=== PATIENT | male | born 1960 | race Caucasian/White ===

== ENCOUNTER → 2017-02-01 | Outpatient (CLI) | payer OTHER ==
[~2017-02-01] MED LIST: 'TENORMIN50 MG PO; ABILIFY10 MG PO; BRIN10TA PO; BRIN20TA PO; CIPRO500 MG PO; DOXYCYCLINE100 M3 PO; K-TAB20 MEQ PO; LASIX20 MG PO; LIPOIC ACID PO; Lovenox40 MG/0.4 SC; QUINAPRIL40 MG PO; VICODIN 5/500 505 MG PO
--- NOTE | ~2017-02-01 | PR ---
[place], [place] PROGRESS NOTE NAME: LORRAINE KEARNEY [facility] #: [id number] UNIT #: [id number] ROOM: DOCTOR: LILLIE CheLYNNETTE BIRTHDATE: [birth year] DOS: 02/01/2017 SUBJECTIVE: The patient comes in for a chief complaint of followup of wounds on the left great toe. HISTORY OF PRESENT ILLNESS: Elements: The patient comes with marked callus formation on his toes and bottom of his right foot. He has had ulcer of his left great toe that was initiated by severe callus formation. This was an open wound that had been noted for the past 2 weeks. He comes in today for followup of this. He was able to get new inserts for his work boots placed; however, they did not give him enough inserts for other shoes so his brother is going to be going back to get another more inserts made. No other complaints are noted regarding the callus or wounds. His vitals are stable. Blood pressure is 118/80, pulse of 70, respirations 16; temperature is 98.2. The area on the left great toe that has a callus over it appears to be healed. There does not appear to be open; however, there is still some callus formation noted. There is also very thick callus noted on the right great toe as well as the left great toe and on the bottom of the plantar aspect of the metatarsal head of the cyst joint on the right foot, so debridement of callus occurred today of all those 3 areas, it was just the removal of hyperkeratotic tissue only. There was moderate amount of bleeding with 2 of the calluses that was controlled with pressure and silver nitrate; however, there was no open wound present underneath them so we will discharge the patient today and he will follow up with Podiatry. He definitely needs podiatric care on a consistent basis as he does have recurrent severe callus formation and severe onychomycosis, one of his toenails is growing laterally instead of normally and this is going to definitely need taking care of, so we will refer the patient to Podiatry for further care. All of his ulcers have healed at the present time and he is going to have inserts made to help hopefully offload some of these areas. In the meantime, today we will just use the bacitracin over the areas that were pared from callus formation. Discharge and follow up if necessary. ADDENDUM The selective debridement that was done was of nonviable tissue, it was the callused area. The area was 0.1 x 0.1 x 0.1 and once the callus was removed there remained closed wound afterwards it was not opened. [place], [place] PROGRESS NOTE NAME: LORRAINE KEARNEY UNIT #: [id number] ROOM: DOCTOR: LYNNETTE MOREIRA M.D. BIRTHDATE: [birth year] LYNNETTE MOREIRA MD CM:AGATHA [id number] LYNNETTE MOREIRA M.D. 02/24/17 1550 interface
== END | disposition home or self-care (01) ==
LOC: WOUNDCARE 02:11
DX: L97.521 Non-pressure chronic ulcer of other part of left foot limited to breakdown of skin (principal); L84 Corns and callosities; B35.1 Tinea unguium

== ENCOUNTER → 2017-09-04 | Outpatient (CLI) | payer OTHER | END | disposition home or self-care (01) | LOC: MRI 14:00 | DX: G20 Parkinson's disease (principal) ==

== ENCOUNTER → 2017-11-16 | Outpatient (CLI) | payer OTHER | END | disposition home or self-care (01) | LOC: WOUNDCARE 01:52 | DX: I70.238 Atherosclerosis of native arteries of right leg with ulceration of other part of lower leg (principal); L97.811 Non-pressure chronic ulcer of other part of right lower leg limited to breakdown of skin; I10 Essential (primary) hypertension; Z87.891 Personal history of nicotine dependence ==

== ENCOUNTER → 2017-11-29 | Outpatient (CLI) | payer OTHER | LOC: WOUNDCARE 01:05 | DX: I70.238 Atherosclerosis of native arteries of right leg with ulceration of other part of lower leg (principal); L97.212 Non-pressure chronic ulcer of right calf with fat layer exposed; I10 Essential (primary) hypertension; Z87.891 Personal history of nicotine dependence ==

== ENCOUNTER → 2017-12-07 | Outpatient (CLI) | payer OTHER | END | disposition home or self-care (01) | LOC: WOUNDCARE 08:16 | DX: I70.238 Atherosclerosis of native arteries of right leg with ulceration of other part of lower leg (principal); L97.212 Non-pressure chronic ulcer of right calf with fat layer exposed; I10 Essential (primary) hypertension; Z87.891 Personal history of nicotine dependence ==

== ENCOUNTER → 2017-12-14 | Outpatient (CLI) | payer OTHER | END | disposition home or self-care (01) | LOC: WOUNDCARE 01:40 | DX: I70.238 Atherosclerosis of native arteries of right leg with ulceration of other part of lower leg (principal); L97.212 Non-pressure chronic ulcer of right calf with fat layer exposed; I10 Essential (primary) hypertension; Z87.891 Personal history of nicotine dependence ==

== ENCOUNTER → 2018-04-11 | Outpatient (CLI) | payer OTHER | END | disposition home or self-care (01) | LOC: WOUNDCARE 01:28 | DX: I87.331 Chronic venous hypertension (idiopathic) with ulcer and inflammation of right lower extremity (principal); L97.212 Non-pressure chronic ulcer of right calf with fat layer exposed; I70.232 Atherosclerosis of native arteries of right leg with ulceration of calf; F03.90 Unspecified dementia, unspecified severity, without behavioral disturbance, psychotic disturbance, mood disturbance, and anxiety; Z87.891 Personal history of nicotine dependence ==

== ENCOUNTER → 2018-04-18 | Outpatient (CLI) | payer OTHER | END | disposition home or self-care (01) | LOC: WOUNDCARE 00:50 | DX: I87.331 Chronic venous hypertension (idiopathic) with ulcer and inflammation of right lower extremity (principal); L97.212 Non-pressure chronic ulcer of right calf with fat layer exposed; F03.90 Unspecified dementia, unspecified severity, without behavioral disturbance, psychotic disturbance, mood disturbance, and anxiety; Z87.891 Personal history of nicotine dependence ==

== ENCOUNTER → 2018-04-25 | Outpatient (CLI) | payer OTHER | END | disposition home or self-care (01) | LOC: WOUNDCARE 03:02 | DX: I87.331 Chronic venous hypertension (idiopathic) with ulcer and inflammation of right lower extremity (principal); L97.212 Non-pressure chronic ulcer of right calf with fat layer exposed; F03.90 Unspecified dementia, unspecified severity, without behavioral disturbance, psychotic disturbance, mood disturbance, and anxiety; Z87.891 Personal history of nicotine dependence ==

== ENCOUNTER → 2018-05-02 | Outpatient (CLI) | payer SELFPAY | END | disposition home or self-care (01) | LOC: WOUNDCARE 01:26 | DX: I87.331 Chronic venous hypertension (idiopathic) with ulcer and inflammation of right lower extremity (principal); L97.212 Non-pressure chronic ulcer of right calf with fat layer exposed; F03.90 Unspecified dementia, unspecified severity, without behavioral disturbance, psychotic disturbance, mood disturbance, and anxiety; Z87.891 Personal history of nicotine dependence ==

== ENCOUNTER → 2018-06-20 | Outpatient (CLI) | payer OTHER | END | disposition home or self-care (01) | LOC: WOUNDCARE 07:40 | DX: L97.811 Non-pressure chronic ulcer of other part of right lower leg limited to breakdown of skin (principal); I87.2 Venous insufficiency (chronic) (peripheral); I10 Essential (primary) hypertension; F03.90 Unspecified dementia, unspecified severity, without behavioral disturbance, psychotic disturbance, mood disturbance, and anxiety; Z87.891 Personal history of nicotine dependence ==

== ENCOUNTER → 2018-10-03 | Outpatient (CLI) | payer OTHER | END | disposition home or self-care (01) | LOC: WOUNDCARE 11:12 | DX: I87.332 Chronic venous hypertension (idiopathic) with ulcer and inflammation of left lower extremity (principal); L97.922 Non-pressure chronic ulcer of unspecified part of left lower leg with fat layer exposed; L89.891 Pressure ulcer of other site, stage 1; L97.912 Non-pressure chronic ulcer of unspecified part of right lower leg with fat layer exposed; F03.90 Unspecified dementia, unspecified severity, without behavioral disturbance, psychotic disturbance, mood disturbance, and anxiety; F12.10 Cannabis abuse, uncomplicated; Z87.891 Personal history of nicotine dependence ==

== ENCOUNTER → 2018-10-10 | Outpatient (CLI) | payer OTHER | END | disposition home or self-care (01) | LOC: WOUNDCARE 04:10 | DX: I87.322 Chronic venous hypertension (idiopathic) with inflammation of left lower extremity (principal); L97.222 Non-pressure chronic ulcer of left calf with fat layer exposed; L89.891 Pressure ulcer of other site, stage 1; F03.90 Unspecified dementia, unspecified severity, without behavioral disturbance, psychotic disturbance, mood disturbance, and anxiety; Z87.891 Personal history of nicotine dependence ==

== ENCOUNTER → 2018-10-24 | Outpatient (CLI) | payer OTHER | END | disposition home or self-care (01) | LOC: WOUNDCARE 04:44 | DX: I87.332 Chronic venous hypertension (idiopathic) with ulcer and inflammation of left lower extremity (principal); L97.222 Non-pressure chronic ulcer of left calf with fat layer exposed; L89.891 Pressure ulcer of other site, stage 1; F03.90 Unspecified dementia, unspecified severity, without behavioral disturbance, psychotic disturbance, mood disturbance, and anxiety; Z87.891 Personal history of nicotine dependence ==

== ENCOUNTER → 2018-10-31 | Outpatient (CLI) | payer OTHER | END | disposition home or self-care (01) | LOC: WOUNDCARE 02:22 | DX: I87.332 Chronic venous hypertension (idiopathic) with ulcer and inflammation of left lower extremity (principal); L89.891 Pressure ulcer of other site, stage 1; L97.222 Non-pressure chronic ulcer of left calf with fat layer exposed; F03.90 Unspecified dementia, unspecified severity, without behavioral disturbance, psychotic disturbance, mood disturbance, and anxiety; Z87.891 Personal history of nicotine dependence ==

== ENCOUNTER → 2018-11-07 | Outpatient (CLI) | payer OTHER | END | disposition home or self-care (01) | LOC: WOUNDCARE 02:30 | DX: I87.332 Chronic venous hypertension (idiopathic) with ulcer and inflammation of left lower extremity (principal); L89.891 Pressure ulcer of other site, stage 1; L97.222 Non-pressure chronic ulcer of left calf with fat layer exposed; F03.90 Unspecified dementia, unspecified severity, without behavioral disturbance, psychotic disturbance, mood disturbance, and anxiety; Z87.891 Personal history of nicotine dependence ==

== ENCOUNTER 2020-07-17 09:34 | Emergency (ER) | payer MEDICARE ==
[~2020-07-17] VITALS: Ht 185.4 cm; Wt 82.6 kg
[~2020-07-17 09:34] MED LIST changes: +AMITIZA24 MCG PO; +MINERAL OIL 1 ML1 ML PO; +MIRALAX17 GM PO; +NAMENDA10 MG PO; +NORVASC5 MG PO; +OLANZAPINE5 MG PO; +PROTONIX40 MG PO; +RIVASTIGMINE T4.5 M1 PO; +ROWASA4 GM/60 ML R; +TAMSULOSIN HCL0.4 MG PO; +TYLENOL325 M2 PO; +ZYPREXA2.5 MG PO
[2020-07-17 10:22] LABS: BASO % 0.4 % (0.0-1.0); EOS # 0.2 10*3/uL (0.0-0.4); EOS % 3.6 % (1.0-4.0); HEMATOCRIT 36.1 % (42.0-52.0); LYMPH # 0.4 10*3/uL (1.3-4.4); LYMPH % 7.7 % (27.0-41.0); MEAN CORPUSCULAR HGB 29.4 pg (27.0-31.0); MEAN CORPUSCULAR HGB CONC 32.7 g/dl (33.0-37.0); MEAN PLATELET VOLUME 9.7 fl (9.6-12.3); MONO # 0.3 10*3/uL (0.1-1.0); MONO % 5.4 % (3.0-9.0); NEUT # 4.6 10*3/uL (2.3-7.9); NEUT % 82.5 % (47.0-73.0); PLATELET COUNT AUTOMATED 222 10*3/uL (130-400); RED BLOOD COUNT 4.01 10*6/uL (4.50-5.90); WHITE BLOOD COUNT 5.6 10*3/uL (4.8-10.8)
[2020-07-17 10:37] LABS: ALBUMIN 2.5 gm/dl (3.1-4.5); ALKALINE PHOSPHATASE 130 U/L (45-117); BUN 21 mg/dl (7-24); CHLORIDE 109 mmol/L (98-107); CREATININE 0.98 mg/dL (0.70-1.30); POTASSIUM 3.6 mmol/L (3.5-5.1); SGOT/AST 34 IU/L (3-35); SGPT/ALT 56 U/L (12-78); SODIUM 142 mmol/L (136-145); TOTAL PROTEIN 6.7 gm/dL (6.4-8.2)
== END 2020-07-17 14:34 | disposition home or self-care (01) ==
LOC: ED 09:34
PROVIDERS: Emergency Medicine
DX: R19.4 Change in bowel habit (principal); E66.9 Obesity, unspecified; I10 Essential (primary) hypertension; Z79.899 Other long term (current) drug therapy; Z87.891 Personal history of nicotine dependence